=== PATIENT | female | born 1970 | race Caucasian/White ===

== ENCOUNTER → 2019-06-02 15:53 | Outpatient (CLI) | payer OTHER, SELFPAY ==
--- NOTE | 2019-06-02 | DI.MG.S_ITS ---
BILATERAL DIGITAL SCREENING MAMMOGRAM 3D/2D WITH CAD: 06/02/2019 CLINICAL: Routine screening. Baseline exam. No prior exams were available for comparison. The tissue of both breasts is heterogeneously dense. This may lower the sensitivity of mammography. Current study was also evaluated with a Computer Aided Detection (CAD) system. No significant masses, calcifications, or other findings are seen in either breast. IMPRESSION: NEGATIVE There is no mammographic evidence of malignancy. A 1 year screening mammogram is recommended. This exam was interpreted at Station ID: [id number]. NOTE: For mammograms, a report in lay terms will be sent to the patient. Approximately 15% of breast malignancies will not be visualized mammographically. In the management of a palpable breast mass, a negative mammogram must not discourage biopsy of a clinically suspicious lesion. Electronically Signed By: Robert frausto/dylan:06/02/2019 16:32:47 letter sent: Normal Exam ACR BI-RADS Category 1: Negative 3341F
== END ==
PROVIDERS: PCP Family Medicine; Visit Provider Family Medicine
DX: Z12.31 Encounter for screening mammogram for malignant neoplasm of breast (principal)
CPT/HCPCS: 77063; 77067

== ENCOUNTER → 2021-06-12 17:40 | Outpatient (CLI) | payer OTHER, SELFPAY ==
--- NOTE | 2021-06-12 | DI.MG.S_ITS ---
BILATERAL DIGITAL SCREENING MAMMOGRAM 3D/2D WITH CAD: 06/12/2021 CLINICAL: Routine screening. Comparison is made to exam dated: 06/02/2019 [facility]. The tissue of both breasts is heterogeneously dense. This may lower the sensitivity of mammography. Current study was also evaluated with a Computer Aided Detection (CAD) system. No significant masses, calcifications, or other findings are seen in either breast. There has been no significant interval change. IMPRESSION: NEGATIVE There is no mammographic evidence of malignancy. A 1 year screening mammogram is recommended. This exam was interpreted at Station ID: [id number]. NOTE: For mammograms, a report in lay terms will be sent to the patient. Approximately 15% of breast malignancies will not be visualized mammographically. In the management of a palpable breast mass, a negative mammogram must not discourage biopsy of a clinically suspicious lesion. Electronically Signed By: Esteban Kaye M.D., jr/dylan:06/13/2021 11:21:55 letter sent: Normal Exam ACR BI-RADS Category 1: Negative 3341F
== END ==
PROVIDERS: PCP Family Medicine; Referring Provider Family Medicine; Visit Provider Family Medicine
DX: Z12.31 Encounter for screening mammogram for malignant neoplasm of breast (principal)
CPT/HCPCS: 77063; 77067

== ENCOUNTER 2021-08-25 10:50 | Emergency (ER) | payer OTHER, SELFPAY ==
[2021-08-25] VITALS (9 sets, daily range): BP systolic 115–151; BP diastolic 70–85; PULSE 61–140; RESP 16–21; TEMP 36.7; O2SAT 98; BMI 29.1
[2021-08-25 11:57] LABS: COVID19 -Nasal RAPID POSITIVE (Negative)
[2021-08-25 12:19] LABS: Add Manual Diff / Slide Review NO; Basophils Absolute Auto 100 /uL (0-100); Basophils Percent Auto 1.2 % (0-2); Eosinophils Absolute Auto 100 /uL (0-450); Eosinophils Percent Auto 1.7 % (2-4); Hematocrit 42.5 % (36-46); Hemoglobin 14.5 g/dL (12.0-16.0); Lymphocytes Absolute Auto 2300 /uL (1100-4500); Lymphocytes Percent Auto 42.1 % (25-40); Mean Corpuscular HGB Conc 34.2 % (30-36); Mean Corpuscular Hemoglobin 29.6 PG (26-34); Mean Corpuscular Volume 86.5 fL (80-100); Monocytes Absolute Auto 600 /uL (0-900); Monocytes Percent Auto 10.5 % (3-14); Neutrophils Absolute Auto 2400 /uL (1500-7000); Neutrophils Percent Auto 44.5 % (50-75); Platelet Count 305 X10^3/uL (150-400); Red Blood Cell Count 4.91 X10^6/uL (4.0-5.2); Red Cell Distribution Width 13.3 % (11.6-14.8); White Blood Cell Count 5.4 X10^3/uL (4.5-11.0)
[2021-08-25 12:21] LABS: Prothrombin Time 11.3 SECONDS (10.1-12.7)
[2021-08-25 12:23] LABS: PTT Partial Thromboplastin Tim 35 SECONDS (26.4-36.2)
[2021-08-25 12:27] LABS: Alanine Aminotransferase 16 IU/L (<35); Albumin 4.6 g/dL (3.5-5.0); Albumin Globulin Ratio 1.3 (1.0-2.8); Alkaline Phosphatase 51 U/L (38-126); Aspartate Aminotransferase 24 IU/L (14-36); BUN Creatinine Ratio 13.3 (6-22); Bilirubin Total 0.3 mg/dL (0.2-1.3); Blood Urea Nitrogen 11 mg/dL (7-17); Calcium 9.4 mg/dL (8.4-10.2); Carbon Dioxide 29 mmol/L (22-32); Chloride 106 mmol/L (98-107); Estimated Glomerular Filt Rate > 60.0 mL/min (>60); Globulin 3.5 g/dL (1.7-4.1); Glucose 91 mg/dL (70-100); HEMOLYSIS < 15 (0-50); Potassium 4.2 mmol/L (3.4-5.1); Sodium 141 mmol/L (137-145); Total Protein 8.1 g/dL (6.3-8.2)
--- NOTE | 2021-08-25 13:27 | ED.GIBLEED ---
HPI - GI Bleed General Chief complaint: GI Bleed Stated complaint: Feeling ill, Physician referral, black stool Time Seen by Provider: 08/25/21 13:27 Source: patient Mode of arrival: Ambulatory Limitations: no limitations History of Present Illness HPI Narrative: This is a 51-year-old female comes emergency department with complaint of just feeling unwell. Patient states she has had fatigue, just generally feeling unwell, some mild abdominal discomfort and cramping sensation like menstrual cramps but states she has had hysterectomy remotely. She had several loose stools 1st several days. She thought her stools were black yesterday. No bright red blood she did a she states they were dark but not black. She has not had any fevers. No chills. No chest pain or shortness of breath no cold, cough or congestive symptoms. Patient denies any dysuria urgency or frequency. She denies any daily medications. She had prior hysterectomy. She is not immunized for coronavirus. She does work as a hairdresser. Primary care is Dr. Croft. Positive for tobacco, occasional alcohol, no illicit. Review of Systems Review of Systems ROS Unobtainable: All systems reviewed & are unremarkable except as noted in HPI and below Patient History Social History Smoking Status: Current every day smoker Smoking Status: Current every day smoker Exam Narrative Exam Narrative: GENERAL: Alert and oriented x three, female in mild distress. HEENT: Head normocephalic, atraumatic, EOMI, pupils reactive, face symmetric, moist mucous membranes NECK: Supple, full range of motion CARDIOVASCULAR: Regular rate and rhythm without murmurs, rubs or gallops. RESPIRATORY: Breath sounds equal bilaterally, no wheezes rales or rhonchi. ABDOMEN: Soft, nontender. Normoactive bowel sounds all 4 quadrants. No guarding or rebound, rigidity, no mass. Digital rectal exam shows no hemorrhoids or mass, stool occult is negative. Chaperoned by LILY Monge : No CVA tenderness EXTREMITIES: Normal range of motion, no clubbing or edema. Neurovascularly intact NEUROLOGICAL: Cranial nerves II through XII grossly intact. Moving all extremities SKIN: Warm, dry, no petechiae, no rashes or lesions. Initial Vital Signs Initial Vital Signs: Vital Signs Temperature 98.1 F 08/25/21 11:21 Pulse Rate 80 08/25/21 11:21 Respiratory Rate 16 08/25/21 11:21 Blood Pressure 131/85 08/25/21 11:21 Pulse Oximetry 98 08/25/21 11:21 Course Orders Ordered: ED Orders 08/25/21 11:23 COVID19 -Nasal swab/Pre-Proc Stat 08/25/21 11:25 EKG-12 Lead Stat 08/25/21 12:02 Complete Blood Count AUTO DIFF Stat Comprehensive Metabolic Panel Stat Partial Thromboplastin Time Stat Prothrombin Time INR Stat 08/25/21 13:27 Lipase Stat Vital Signs Vital signs: Vital Signs - 8 hr 08/25/21 11:21 08/25/21 11:45 08/25/21 12:00 Temperature 98.1 F Pulse Rate 80 140 H 74 Respiratory Rate 16 18 17 Blood Pressure 131/85 151/84 H Pulse Oximetry 98 08/25/21 12:30 08/25/21 13:00 08/25/21 13:22 Temperature Pulse Rate 69 63 64 Respiratory Rate 19 17 18 Blood Pressure 136/83 Pulse Oximetry 98 08/25/21 13:30 08/25/21 14:00 08/25/21 14:30 Temperature Pulse Rate 67 61 62 Respiratory Rate 21 20 21 Blood Pressure 115/79 128/80 129/70 Pulse Oximetry MDM - GI Bleed Lab Data Result diagrams: 08/25/21 12:02 08/25/21 12:02 Labs: Lab Results 08/25/21 08/25/21 08/25/21 Range/Units 11:23 12:02 12:02 WBC 5.4 (4.5-11.0) X10^3/uL RBC 4.91 (4.0-5.2) X10^6/uL Hgb 14.5 (12.0-16.0) g/dL Hct 42.5 (36-46) % MCV 86.5 (80-100) fL MCH 29.6 (26-34) PG MCHC 34.2 (30-36) % RDW 13.3 (11.6-14.8) % Plt Count 305 (150-400) X10^3/uL Neut % (Auto) 44.5 L (50-75) % Lymph % (Auto) 42.1 H (25-40) % Baker % (Auto) 10.5 (3-14) % Eos % (Auto) 1.7 L (2-4) % Baso % (Auto) 1.2 (0-2) % Neut # (Auto) 2400 (7672-0953) /uL Lymph # (Auto) 2300 (2623-2689) /uL Baker # (Auto) 600 (0-900) /uL Eos # (Auto) 100 (0-450) /uL Baso # (Auto) 100 (0-100) /uL PT 11.3 (10.1-12.7) SECONDS INR 1.0 (0.9-1.3) APTT 35 (26.4-36.2) SECONDS Sodium (137-145) mmol/L Potassium (3.4-5.1) mmol/L Chloride (98-107) mmol/L Carbon Dioxide (22-32) mmol/L BUN (7-17) mg/dL Creatinine (0.52-1.04) mg/dL Estimated GFR (>60) mL/min BUN/Creatinine Ratio (6-22) Glucose (70-100) mg/dL Calcium (8.4-10.2) mg/dL Total Bilirubin (0.2-1.3) mg/dL AST (14-36) IU/L ALT (<35) IU/L Alkaline Phosphatase (38-126) U/L Total Protein (6.3-8.2) g/dL Albumin (3.5-5.0) g/dL Globulin (1.7-4.1) g/dL Albumin/Globulin Ratio (1.0-2.8) Lipase (23-300) U/L SARS-CoV-2 (PCR) Positive H (Negative) 08/25/21 08/25/21 Range/Units 12:02 13:27 WBC (4.5-11.0) X10^3/uL RBC (4.0-5.2) X10^6/uL Hgb (12.0-16.0) g/dL Hct (36-46) % MCV (80-100) fL MCH (26-34) PG MCHC (30-36) % RDW (11.6-14.8) % Plt Count (150-400) X10^3/uL Neut % (Auto) (50-75) % Lymph % (Auto) (25-40) % Baker % (Auto) (3-14) % Eos % (Auto) (2-4) % Baso % (Auto) (0-2) % Neut # (Auto) (7470-8613) /uL Lymph # (Auto) (7428-1327) /uL Baker # (Auto) (0-900) /uL Eos # (Auto) (0-450) /uL Baso # (Auto) (0-100) /uL PT (10.1-12.7) SECONDS INR (0.9-1.3) APTT (26.4-36.2) SECONDS Sodium 141 (137-145) mmol/L Potassium 4.2 (3.4-5.1) mmol/L Chloride 106 (98-107) mmol/L Carbon Dioxide 29 (22-32) mmol/L BUN 11 (7-17) mg/dL Creatinine 0.83 (0.52-1.04) mg/dL Estimated GFR > 60.0 (>60) mL/min BUN/Creatinine Ratio 13.3 (6-22) Glucose 91 (70-100) mg/dL Calcium 9.4 (8.4-10.2) mg/dL Total Bilirubin 0.3 (0.2-1.3) mg/dL AST 24 (14-36) IU/L ALT 16 (<35) IU/L Alkaline Phosphatase 51 (38-126) U/L Total Protein 8.1 (6.3-8.2) g/dL Albumin 4.6 (3.5-5.0) g/dL Globulin 3.5 (1.7-4.1) g/dL Albumin/Globulin Ratio 1.3 (1.0-2.8) Lipase 72 (23-300) U/L SARS-CoV-2 (PCR) (Negative) Urine Dip Bedside Urine Glucose Negative Bedside Urine Bilirubin - Negative Bedside Urine Ketone - Negative Urine Specific [place] 1.010 Bedside Urine Occult Blood - Negative Bedside Urine pH 6.0 Bedside Urine Protein - Negative Bedside Urine Urobilinogen 0.2 Bedside Urine Nitrite - Negative Bedside Urine Leukocytes - Negative Esterase MDM Narrative Medical decision making narrative: This is a 51-year-old female with generally feeling unwell some abdominal discomfort and crampy sensation with frequent loose stools and yesterday had black tarry stools but none today. Patient is positive for coronavirus. She is on immunized. Her vitals are reassuring. Her labs show no major changes to hemoglobin. Her stool occult is negative for me. CMP and lipase are negative. Patient's abdominal exam is reassuring. Discussed this is likely all from her coronavirus. If she has new or frequent red, bloody or black stools if very mild needs follow-up for colonoscopy but none was noted today. We did discuss return precautions. Patient feels comfortable with this plan. Offered Bentyl for cramping abdominal pain but she defers and plans to use Tylenol and/or ibuprofen. Discharge Plan Departure Patient Disposition: Home Clinical Impression: COVID-19 virus infection Instructions: DI for COVID-19 (Suspected or Confirmed ) Activity Restrictions/Additional Instructions: *You have been diagnosed with coronavirus infection. If you wish you may obtain a pulse oximeter for use at home to monitor. Please return to the ER if your pulse oximeter shows an O2 saturation less than 92%. You can take Tylenol and/or ibuprofen for abdominal discomfort or cramping. If you appreciate the black stools or bright red stools on occasions but not persistently I would recommend that you follow-up with your primary care to get referral for colonoscopy but there was no blood noted in your stool today on exam. *What to do: * per recommendations from the CDC and the [facility] Department of Health * stay home except to get medical care. Restrict activities outside your home, except for getting medical care. Do not go to work, school, or public areas. Avoid using public transportation, ride sharing, or taxis. * separate yourself from other people in your home. * call ahead before visiting your doctor * Wear a face mask * Cover your coughs and sneezes * Clean your hands often * Avoid sharing household items * Clean all high-touch services every day * Monitor your symptoms and seek prompt medical attention if your illness is worsening, particularly with difficulty in breathing. Discussed continuing home isolation * for individuals with symptoms who are confirmed or suspected cases of COVID-19 and are directed to care for themselves at home, discontinue home isolation under the following conditions: 1. At least 72 hours have passed since recovery, defined as resolution of fever without the use of fever reducing medications, and improvement in respiratory symptoms (cough, shortness of breath) AND, 2. At least 5 days have passed since symptoms 1st appeared Individuals with laboratory confirmed COVID-19 who have not had any symptoms may discontinue home isolation when at least 5 days have passed since the date of their 1st COVID-19 diagnostic test and have had no subsequent illness Referrals: Colin Croft DO [Primary Care Provider] -
[2021-08-25 13:43] LABS: Lipase 72 U/L (23-300)
== END 2021-08-25 14:43 | disposition home or self-care (01) ==
PROVIDERS: Emergency Provider Emergency Medicine; PCP Family Medicine
DX: U07.1 COVID-19 (principal); R10.9 Unspecified abdominal pain
CPT/HCPCS: 36415; 80053; 81003; 83690; 85025; 85610; 85730; 87635; 93005; 99283; C9803

== ENCOUNTER 2024-10-31 10:13 | Emergency (ER) | payer OTHER, SELFPAY ==
[2024-10-31 10:17] VITALS: BP 141/79; PULSE 71; RESP 16; TEMP 36.6; O2SAT 99; BMI 27.4
--- NOTE | 2024-10-31 11:27 | ED.EYEPROB ---
HPI - Eye Problem <Rochelle Naranjo PA-C - Last Filed: 10/31/24 13:05> General Chief complaint: Eye Problems Stated complaint: RT eye swollen and sore Time Seen by Provider: 10/31/24 11:09 Source: patient Mode of arrival: Ambulatory History of Present Illness HPI Narrative: Ms. Munoz is a very pleasant 54-year-old female with a past medical history of sulfa allergy who presents to the emergency department for right upper eyelid swelling x3 days. Patient denies any trauma to the eye, foreign body or scratching of the eye. She does not wear contacts or glasses, but she does use reading glasses. States that Friday she noticed the right eyelid started to get painful and swollen and she thought maybe she was developing a stye. She started using warm compresses however this only made the swelling worse. She comes into the ED today because she has worsening redness and swelling of the right upper eyelid. States that the eyes somewhat watery but she denies any visual disturbance, foreign body sensation or scratching of the right eye and there was no redness of the right eyeball itself. No recent upper respiratory infection or sinus infection. No drainage from the eye. Related Data Previous Rx's Medication Instructions Recorded amoxicillin 875 mg-potassium 1 tab PO Q12H 5 days #10 tabs 10/31/24 clavulanate 125 mg tablet erythromycin 5 mg/gram (0.5 %) eye 1 cm EYE-RIGHT QID 7 days #3.5 10/31/24 ointment grams Allergies Allergy/AdvReac Type Severity Reaction Status Date / Time Iodinated Contrast Media Allergy Swelling Verified 10/31/24 10:24 of Lip/Tongue/Throat Sulfa (Sulfonamide Allergy Swelling Verified 10/31/24 10:24 Antibiotics) of Lip/Tongue/Throat Review of Systems <Rochelle Naranjo PA-C - Last Filed: 10/31/24 13:05> Review of Systems ROS Unobtainable: All systems reviewed & are unremarkable except as noted in HPI and below Patient History <Rochelle Naranjo PA-C - Last Filed: 10/31/24 13:05> Social History Smoking Status: Current every day smoker Smoking Status: Current every day smoker tobacco type: cigarettes Exam <SCOOBY Philip Last Filed: 10/31/24 13:05> Narrative Exam Narrative: GENERAL: 54 year old patient appears stated age. Well-developed patient, in no acute distress. HEAD: Atraumatic. Normocephalic. EYES: Right upper eyelid diffusely edematous with mild erythema. No obvious hordeolum or chalazion. PERRL. Extraocular motions intact, nonpainful. No scleral icterus. No injection or drainage. Gross vision intact. ENT: Nose without bleeding, purulent drainage. NECK: Trachea midline. Cervical ROM intact. CARDIOVASCULAR: Regular rate and rhythm. RESPIRATORY: ?Nonlabored respirations. ?Speaking in clear, full sentences. ?Clear to auscultation. Breath sounds equal bilaterally. No wheezes, rales, or rhonchi. ? NEURO: AOx3. ?Clear speech. ?Moves all 4 extremities appropriately. Initial Vital Signs Initial Vital Signs: Vital Signs Temperature 97.8 F 10/31/24 10:17 Pulse Rate 71 10/31/24 10:17 Respiratory Rate 16 10/31/24 10:17 Blood Pressure 141/79 H 10/31/24 10:17 Pulse Oximetry 99 10/31/24 10:17 Oxygen Delivery Method Room Air 10/31/24 10:17 <Rosaline Freire DO - Last Filed: 10/31/24 18:28> Initial Vital Signs Initial Vital Signs: Vital Signs Temperature 97.8 F 10/31/24 10:17 Pulse Rate 71 10/31/24 10:17 Respiratory Rate 16 10/31/24 10:17 Blood Pressure 141/79 H 10/31/24 10:17 Pulse Oximetry 99 10/31/24 10:17 Oxygen Delivery Method Room Air 10/31/24 10:17 Course <Rochelle Naranjo PA-C - Last Filed: 10/31/24 13:05> Orders Ordered: Discontinued Medications Erythromycin (Erythromycin Ophth 1 Gm Oint) 1 applic EYE-RIGHT NOW ONE Stop: 10/31/24 12:27 Last Admin: 10/31/24 12:45 Dose: 1 applic Documented By: LITA Fluorescein Sodium (Fluorescein 1 Mg Strip) 1 mg EYE-RIGHT NOW ONE Stop: 10/31/24 11:13 Last Admin: 10/31/24 12:07 Dose: 1 mg Documented By: BS Proparacaine HCl (Proparacaine 0.5% Ophth Joyce) 1 drops EYE-RIGHT NOW ONE Stop: 10/31/24 11:13 Last Admin: 10/31/24 12:07 Dose: 1 drops Documented By: BS Vital Signs Vital signs: Vital Signs - 8 hr 10/31/24 10:17 Temperature 97.8 F Pulse Rate 71 Respiratory Rate 16 Blood Pressure 141/79 H Pulse Oximetry 99 Oxygen Delivery Method Room Air <Rosaline Freire DO - Last Filed: 10/31/24 18:28> Orders Ordered: Discontinued Medications Erythromycin (Erythromycin Ophth 1 Gm Oint) 1 applic EYE-RIGHT NOW ONE Stop: 10/31/24 12:27 Last Admin: 10/31/24 12:45 Dose: 1 applic Documented By: BS Fluorescein Sodium (Fluorescein 1 Mg Strip) 1 mg EYE-RIGHT NOW ONE Stop: 10/31/24 11:13 Last Admin: 10/31/24 12:07 Dose: 1 mg Documented By: BS Proparacaine HCl (Proparacaine 0.5% Ophth Joyce) 1 drops EYE-RIGHT NOW ONE Stop: 10/31/24 11:13 Last Admin: 10/31/24 12:07 Dose: 1 drops Documented By: BS Vital Signs Vital signs: Vital Signs - 8 hr 10/31/24 10:17 Temperature 97.8 F Pulse Rate 71 Respiratory Rate 16 Blood Pressure 141/79 H Pulse Oximetry 99 Oxygen Delivery Method Room Air MDM - Eye Problem <Rochelle Naranjo PA-C - Last Filed: 10/31/24 13:05> Medical Records Attestation: I reviewed the patient's medical records. Medical records narrative: ED visit 08/25/2021 [facility] Narrative Medical decision making narrative: 54-year-old female with a past medical history of sulfa allergy who presents to the emergency department for right upper eyelid swelling x3 days. Differential diagnosis includes but is not limited to blepharitis, preseptal cellulitis, hordeolum, chalazion, etc. On exam patient is in no acute distress, nontoxic appearing, vital signs within normal limits. Visual acuity appropriate, gross vision intact. She is diffuse edema and mild erythema of the right upper eyelid, no involvement of the conjunctiva or sclera. We will proceed with fluorescein eye exam. Suspect blepharitis, possibly early development of preseptal cellulitis. Fluorescein eye exam reveals no abrasions, no foreign bodies, negative Rk sign, no obvious chalazion or stye with eversion of the upper eyelid. We will treat with erythromycin ophthalmic ointment 4 times a day for a week in addition to Augmentin b.i.d. x5 days for potential early development of preseptal cellulitis. Discussed strict ED return precautions, supportive care with eyelid washes and warm compresses, follow up with PCP. Patient verbalized understanding of all information agreeable with the plan. She is stable for discharge home. Discharge Plan Departure Patient Disposition: Home Clinical Impression: Blepharitis of right upper eyelid Qualifiers: Blepharitis type: unspecified type Qualified Code(s): H01.001 - Unspecified blepharitis right upper eyelid Instructions: DI for Blepharitis Activity Restrictions/Additional Instructions: Dear Ms. Boones, Thank you for coming to the emergency department. Today you being treated for infection and inflammation of the right upper eyelid. Please use the antibiotic eye ointment 4 times a day for the next week and complete the full 5 day course of oral antibiotics. I would also like you to use baby shampoo to wash the upper eyelid 1 to 2 times a day, and use warm compresses to help with any drainage. You can also use cool compresses to help with swelling and pain. Please take Ibuprofen (Motrin/Advil) or Acetaminophen (Tylenol) for pain. These are available over the counter. You may take Ibuprofen 600 mg every 8 hours with food for pain. You may also take Acetaminophen 650 mg every 4-6 hours for pain. Do not exceed 3000 mg of Tylenol a day as this can cause liver damage. Do not drink alcohol with either of these medications. Please return to the emergency department if you develop any new or worsening symptoms such as visual changes, fevers, redness of the face or other concerns. Please follow up with your primary care doctor within the next 2-3 days for ER follow-up. (If you do not have a PCP you can call [phone]. ?to schedule an appointment with an [facility] Primary Care Provider) IF YOU DEVELOP ANY NEW OR WORSENING SYMPTOMS, RETURN TO THE ER! Please read the attached instructions, they highlight more specific treatments and interventions for you at home. Thank you for letting me participate in your care, Rochelle Naranjo PA-C Prescriptions: New amoxicillin-pot clavulanate 875-125 mg tablet 1 tab PO Q12H 5 Days Qty: 10 0RF erythromycin 5 mg/gram (0.5 %) ointment 1 cm EYE-RIGHT QID 7 Days Qty: 3.5 0RF Referrals: Coiln Croft DO [Primary Care Provider] - Stand Alone Forms: Patient Portal/API/Survey ED Sign-out <Rosaline Freire DO - Last Filed: 10/31/24 18:28> Cosign ED Attending Juan Francisco Attestation: I was immediately available in the department for consultation.
[2024-10-31] MEDS: PROPARACAINE 0.5% OPHTH SOL 1 DROPS EYE-RIGHT (12:07)
[2024-10-31] MEDS: FLUORESCEIN 1 MG STRIP EYE-RIGHT (12:07)
[2024-10-31] MEDS: ERYTHROMYCIN OPHTH 1 GM OINT 1 APPLIC EYE-RIGHT (12:45)
== END 2024-10-31 12:48 | disposition home or self-care (01) ==
PROVIDERS: Emergency Provider Physician Assistant; PCP Family Medicine
DX: H01.001 Unspecified blepharitis right upper eyelid (principal)
CPT/HCPCS: 99282